=== PATIENT | male | born 1965 | race Hispanic/Latino ===

== ENCOUNTER 2020-03-07 08:34 | Inpatient (IN) | payer OTHER ==
[2020-03-07] MEDS ORDERED: IPRATROPIUM 0.02% NEBU 2.5 ML IH ONE (08:55)
[2020-03-07] MEDS ORDERED: ALBUTEROL 2.5 MG/3 ML NEBU IH ONE (08:55)
--- NOTE | 2020-03-07 09:01 | Emergency Department Report ---
HPI - General Chief Complaint: Upper Respiratory Infection Time Seen by Provider: 03/07/20 08:40 - HPI HPI: Room 40 The patient is a 54-year-old male present with a chief complaint of fever shortness of breath and chest congestion. Patient states he was diagnosed with Covid 6 days ago and since then he has had a fever ranging from 101-101.5 F, shortness of breath that worsens with exertion and chest congestion. Patient is to cough that is nonproductive. Patient drove himself to the emergency department ED Past Medical Hx - Past Medical History Previous Medical History?: No - Surgical History Additional Surgical History: Sigmoidectomy - Family History Family history: no significant - Social History Smoking Status: Never Smoker Substance Use Type: None (Denies illicit drug use) ED Review of Systems ROS: Stated complaint: COVID POSITIVE Other details as noted in HPI Constitutional: fever Eyes: denies: eye pain ENT: denies: throat pain Respiratory: cough, shortness of breath, SOB with exertion, other (Chest congestion) Endocrine: no symptoms reported Gastrointestinal: denies: abdominal pain Genitourinary: denies: dysuria Musculoskeletal: denies: back pain Neurological: denies: headache Physical Exam - Physical Exam Physical Exam: GENERAL: The patient is well-developed well-nourished male lying on stretcher not appearing to be in acute distress. [] HEENT: Normocephalic. Atraumatic. Extraocular motions are intact. Patient has moist mucous membranes. NECK: Supple. Trachea midline CHEST/LUNGS: Rhonchi with occasional wheeze. Occasional cough. HEART/CARDIOVASCULAR: Regular. There is no tachycardia. There is no gallop rub or murmur. ABDOMEN: Abdomen is soft, nontender. Patient has normal bowel sounds. There is no abdominal distention. SKIN: There is no rash. There is no diaphoresis. NEURO: The patient is awake, alert, and oriented. The patient is cooperative. The patient has normal speech MUSCULOSKELETAL: There is no evidence of acute injury. ED Course - Reevaluation(s) Reevaluation #1: 03/07/20 11:40 Patient desatted to 88% on room air upon ambulation for 2 minutes. Will admit to the hospital ED Medical Decision Making - Lab Data Result diagrams: 03/07/20 08:59 03/07/20 08:59 Laboratory Tests 03/07/20 03/07/20 08:59 08:59 WBC 5.4 RBC 4.90 Hgb 15.7 H Hct 45.0 MCV 92 MCH 32 MCHC 35 H RDW 13.2 Plt Count 219 Lymph % (Auto) 22.7 [place] % (Auto) 12.5 H Eos % (Auto) 3.1 Baso % (Auto) 1.9 H Lymph # (Auto) 1.2 [place] # (Auto) 0.7 Eos # (Auto) 0.2 Baso # (Auto) 0.1 Seg Neutrophils % 59.8 Seg Neutrophils # 3.2 Sodium 142 Potassium 4.4 Chloride 103.8 Carbon Dioxide 34 H Anion Gap 9 BUN 9 Creatinine 0.7 L Estimated GFR > 60 BUN/Creatinine Ratio 13 Glucose 106 H Calcium 9.6 Total Bilirubin 0.30 AST 22 ALT 35 Alkaline Phosphatase 68 NT-Pro-B Natriuret Pep 24.44 Total Protein 7.2 Albumin 4.5 Albumin/Globulin Ratio 1.7 - Radiology Data Radiology results: report reviewed (Chest x-ray), image reviewed (Chest x-ray) interpreted by me: Chest x-ray-no focal infiltrates, no pneumothorax, no foreign body seen Findings [facility] [address] [place] [address] XRay Report Signed Patient: ANA GOLDSMITH MR#: [id number] : 1965 Acct:[id number] Age/Sex: 54 / M ADM Date: 03/07/20 Loc: ED Attending Dr: Ordering Physician: LEATHA HARRISON MD Date of Service: 03/07/20 Procedure(s): XR chest 1V ap Accession Number(s): [id number] cc: LEATHA HARRISON MD Fluoro Time In Minutes: CHEST 1 VIEW 03/07/2020 9:39 AM INDICATION / CLINICAL INFORMATION: Cough, shortness of breath. Covid positive. COMPARISON: None available. FINDINGS: SUPPORT DEVICES: None. HEART / MEDIASTINUM: No significant abnormality. LUNGS / PLEURA: There is minimal parenchymal opacity in the right lung base. No pneumothorax. ADDITIONAL FINDINGS: No significant additional findings. IMPRESSION: 1. There is minimal parenchymal opacity in the right lung base. Signer Name: Pete London MD Signed: 03/07/2020 10:41 AM Workstation Name: [id number] Transcribed By: SS Dictated By: Pete London MD Electronically Authenticated By: Pete London MD Signed Date/Time: 03/07/20 1041 DD/ 1040 TD/TT: - Differential Diagnosis COVID-19 pneumonia Critical care attestation.: If time is entered above; I have spent that time in minutes in the direct care of this critically ill patient, excluding procedure time. ED Disposition Clinical Impression: COVID-19, Pneumonia, Hypoxia Disposition: DC-09 OP ADMIT IP TO THIS HOSP Is pt being admited?: Yes Does the pt Need Aspirin: No Condition: Fair Instructions: Bacterial Pneumonia (ED) Referrals: PRIMARY CARE, [Primary Care Provider] - 3-5 Days Time of Disposition: 11:41 (Hospitalist paged)
[2020-03-07 09:22] LABS: Basophils # (Auto) 0.1 K/mm3 (0.0-0.1); Basophils % (Auto) 1.9 % (0.0-1.8); Eosinophils # (Auto) 0.2 K/mm3 (0.0-0.4); Eosinophils % (Auto) 3.1 % (0.0-4.3); Hemoglobin 15.7 gm/dl (11.8-15.2); Lymphocytes # (Auto) 1.2 K/mm3 (1.2-5.4); Lymphocytes % (Auto) 22.7 % (13.4-35.0); Mean Corpuscular HGB Conc 35 % (32-34); Mean Corpuscular Volume 92 fl (84-94); Monocytes # (Auto) 0.7 K/mm3 (0.0-0.8); Monocytes % (Auto) 12.5 % (0.0-7.3); Platelet Count 219 K/mm3 (140-440); Red Cell Distribution Width 13.2 % (13.2-15.2)
[2020-03-07 09:40] LABS: Alanine Aminotransferase 35 units/L (7-56); Albumin 4.5 g/dL (3.9-5); Blood Urea Nitrogen 9 mg/dL (9-20); Calcium 9.6 mg/dL (8.4-10.2); Hemolysis Index 7
[2020-03-07 09:47] LABS: BUN/Creatinine Ratio 13
--- NOTE | 2020-03-07 10:45 | XRay Report ---
CHEST 1 VIEW 03/07/2020 9:39 AM INDICATION / CLINICAL INFORMATION: Cough, shortness of breath. Covid positive. COMPARISON: None available. FINDINGS: SUPPORT DEVICES: None. HEART / MEDIASTINUM: No significant abnormality. LUNGS / PLEURA: There is minimal parenchymal opacity in the right lung base. No pneumothorax. ADDITIONAL FINDINGS: No significant additional findings. IMPRESSION: 1. There is minimal parenchymal opacity in the right lung base. Signer Name: Pete London MD Signed: 03/07/2020 10:41 AM Workstation Name: [id number]
--- NOTE | 2020-03-07 11:44 | History and Physical Report ---
History of Present Illness Chief complaint: I cannot breathe, and i Feel terrible History of present illness: 54 YO Male with No PMH presents to ED for evaluation. Patient states that "I have been feeling terrible" over the past 6 days with persistently worsening symptoms over the same timeframe. Patient was found to have a positive coronavirus test 6 days ago. Patient states that he has experienced fever, shortness of breath, malaise, decreased exercise tolerance, muscle aches, shortness of breath, dry cough, dyspnea on exertion, as well as dyspnea at rest. Patient transported to [facility] via private vehicle for further care and evaluation of the aforementioned symptoms. The patient was seen and evaluated in the emergency department. All lab and imaging studies reviewed. Patient was found to have fever to 102.0 F. Patient found to have a pulse oximetry of 86% with exertion which is consistent with acute hypoxemic respiratory failure. Chest x- ray revealed evidence of pneumonia. Patient admitted to medical floor and initiated on pneumonia protocol, as well as coronavirus protocol. Patient knowledges fever, chills but denies chest pain, palpitation, skin rash, recent ill contacts. No prior admission for review. No medication listed at time of admission for reconciliation. Past History Past Medical History: No medical history Past Surgical History: bowel surgery Social history: . denies: smoking, alcohol abuse, prescription drug abuse Family history: no significant family history, other (Reviewed) Medications and Allergies Allergies Allergy/AdvReac Type Severity Reaction Status Date / Time No Known Allergies Allergy Unverified 03/07/20 08:55 Review of Systems Constitutional: fever, fatigue, weakness, malaise Ears, nose, mouth and throat: no ear pain, no ear discharge, no tinnitis, no decreased hearing, no nose pain Cardiovascular: no chest pain, no orthopnea, no palpitations Respiratory: cough, cough with sputum, shortness of breath, dyspnea on exertion, no congestion Gastrointestinal: no nausea, no vomiting, no diarrhea, no constipation Genitourinary Male: no hematuria, no flank pain, no discharge, no urinary frequency, no urinary hesitancy Rectal: no pain, no incontinence, no bleeding Musculoskeletal: no neck stiffness, no neck pain, no shooting arm pain, no arm numbness/tingling, no low back pain Integumentary: no rash, no pruritis, no redness, no sores, no wounds, no jaundice Neurological: no transient paralysis, no paralysis, no weakness, no parathesias, no numbness, no tingling, no seizures Psychiatric: no anxiety, no change in sleep habits, no sleep disturbances, no hypersomnia, no change in appetite Endocrine: no cold intolerance Hematologic/Lymphatic: no easy bruising, no easy bleeding Allergic/Immunologic: no urticaria, no allergic rhinitis Exam - Constitutional Vitals: Temp Pulse Resp BP Pulse Ox 98 F 88 18 157/82 98 03/07/20 08:54 03/07/20 09:05 03/07/20 09:05 03/07/20 08:54 03/07/20 08:54 General appearance: Present: mild distress - EENT Eyes: Present: PERRL ENT: hearing intact, clear oral mucosa - Neck Neck: Present: supple, normal ROM - Respiratory Respiratory effort: labored, accessory muscle use, stridor Respiratory: bilateral: diminished, rhonchi - Cardiovascular Heart Sounds: Present: S1 & S2. Absent: rub, click - Extremities Extremities: pulses symmetrical, No edema Peripheral Pulses: within normal limits - Abdominal General gastrointestinal: Present: soft, non-tender, non-distended, normal bowel sounds Male genitourinary: Present: normal - Integumentary Integumentary: Present: clear, warm, dry - Musculoskeletal Musculoskeletal: gait normal, strength equal bilaterally - Psychiatric Psychiatric: appropriate mood/affect, intact judgment & insight - Neurologic Neurologic: CNII-XII intact, moves all extremities Results - Labs CBC & Chem 7: 03/07/20 08:59 03/07/20 08:59 Labs: Abnormal lab results 03/07/20 03/07/20 Range/Units 08:59 08:59 Hgb 15.7 H (11.8-15.2) gm/dl MCHC 35 H (32-34) % [place] % (Auto) 12.5 H (0.0-7.3) % Baso % (Auto) 1.9 H (0.0-1.8) % Carbon Dioxide 34 H (22-30) mmol/L Creatinine 0.7 L (0.8-1.3) mg/dL Glucose 106 H (75-100) mg/dL Assessment and Plan - Patient Problems (1) Acute hypoxemic respiratory failure Current Visit: Yes Status: Acute Plan to address problem: Supplemental oxygen, pulse oximetry, nebulizer therapy, prone positioning while in bed, pulmonary toilet, chest x-ray. (2) COVID-19 Current Visit: Yes Status: Acute Plan to address problem: Coronavirus protocol: Contact precautions, isolation precautions, IV antibiotic therapy, IV steroid therapy, prone positioning while in bed, supplemental oxygen, pulmonary toilet, supportive care. (3) Pneumonia Current Visit: Yes Status: Acute Plan to address problem: Pneumonia protocol: Chest x-ray, CBC, CMP, IV antibiotic therapy, nebulizer therapy, pulse oximetry, blood culture. (4) DVT prophylaxis Current Visit: Yes Status: Acute Plan to address problem: SCD to bilateral lower extremities while in bed, prophylactic anticoagulation
[2020-03-07] MEDS ORDERED: ALBUTEROL 2.5 MG/3 ML NEBU IH PRN (12:00)
[2020-03-07] MEDS ORDERED: cefTRIAXone/NS 2 GM/100 ML 2 GM/100 ML BAG IV SCH (12:00)
[2020-03-07] MEDS ORDERED: ACETAMINOPHEN 325 MG TAB PO PRN (12:00)
[2020-03-07] MEDS ORDERED: ONDANSETRON 4 MG/2 ML INJ IV PRN (12:00)
[2020-03-07] MEDS ORDERED: AZITHROMYCIN 500 MG in SODIUM CHLORIDE 0.9% 250ML 250 ML IV SCH (12:30)
[2020-03-07 12:55] LABS: C-Reactive Protein 0.3 mg/dL (0.00-1.30)
[2020-03-07] MEDS ORDERED: HYDROcodone/HOMATROPINE 5-1.5MG /5 ML ORAL LIQD UNIT DOSE PO PRN (13:00)
[2020-03-07] MEDS: HEPARIN 5,000 UNIT/1 ML VIAL SUB-Q SCH ×2 (14:05→21:24)
[2020-03-07] MEDS: methylPREDNISolone Sod Succinate 40 MG/1 ML INJ IV SCH ×2 (14:05→21:25)
[2020-03-07] MEDS: FAMOTIDINE 10 MG TAB PO SCH ×2 (14:07→21:24)
--- NOTE | 2020-03-07 15:39 | Consultation ---
History of Present Illness - Reason for Consult Consult date: 03/07/20 - History of Present Illness 54-year-old male no past medical history presented to the hospital complaining of generalized malaise. He notes this began approximately 6 days prior to admission with associated with progressive worsening since that time. He was noted to have a positive Covid test 6 days prior as well. He complains of fevers, shortness of breath, general Covid symptoms. He notes fevers at home. Afebrile since admission with a normal white count. Normal procalcitonin, normal renal function. Covid testing pending. Currently on ceftriaxone azithromycin. Blood cultures currently pending. Imaging personally reviewed: Chest x-ray: Minimal opacity in the right lung base. Review of systems: Deferred due to PPE conservation strategy. Past History Past Medical History: No medical history Past Surgical History: bowel surgery Social history: . denies: smoking, alcohol abuse, prescription drug abuse Family history: no significant family history, other (Reviewed) Medications and Allergies Allergies Allergy/AdvReac Type Severity Reaction Status Date / Time No Known Allergies Allergy Unverified 03/07/20 08:55 Active Meds: Active Medications Acetaminophen (Acetaminophen 325 Mg Tab) 650 mg PO Q4H PRN PRN Reason: Pain MILD(1-3)/Fever >100.5/MARRERO Albuterol (Albuterol 2.5 Mg/3 Ml Nebu) 2.5 mg IH Q4HRT PRN PRN Reason: Shortness Of Breath Famotidine (Famotidine 10 Mg Tab) 10 mg PO BID [facility] Last Admin: 03/07/20 14:07 Dose: 10 mg Documented by: Heparin Sodium (Porcine) (Heparin 5,000 Unit/1 Ml Vial) 5,000 unit SUB-Q Q12HR BETTIE Last Admin: 03/07/20 14:05 Dose: 5,000 unit Documented by: Hydrocodone Bit/Homatropine Methylb (Hydrocodone/Homatropine 5-1.5mg /5 Ml Oral Liqd Unit Dose) 10 ml PO Q6H PRN PRN Reason: Cough Ceftriaxone Sodium (Rocephin/Ns 2 Gm/100 Ml) 2 gm in 100 mls @ 200 mls/hr IV Q24H BETTIE; Protocol Azithromycin 500 mg/ Sodium (Chloride) 250 mls @ 250 mls/hr IV Q24H BETTIE; Protocol Methylprednisolone Sodium Succinate (Methylprednisolone Sod Succinate 40 Mg/1 Ml Inj) 40 mg IV Q8HR BETTIE Last Admin: 03/07/20 14:05 Dose: 40 mg Documented by: Ondansetron HCl (Ondansetron 4 Mg/2 Ml Inj) 4 mg IV Q8H PRN PRN Reason: Nausea And Vomiting Sodium Chloride (Sodium Chloride 0.9% 10 Ml Flush Syringe) 10 ml IV BID BETTIE Last Admin: 03/07/20 14:07 Dose: 10 ml Documented by: Sodium Chloride (Sodium Chloride 0.9% 10 Ml Flush Syringe) 10 ml IV PRN PRN PRN Reason: LINE FLUSH Physical Examination - Physical Exam Narrative exam: Physical exam deferred due to PPE conservation strategy. Please refer to primary team's note. - Constitutional Vitals: Vital Signs Temp Pulse Resp BP Pulse Ox 98 F 88 18 157/82 98 03/07/20 08:54 03/07/20 09:05 03/07/20 09:05 03/07/20 08:54 03/07/20 08:54 Temperature -Last 24 Hours Temperature 98 F Results - Labs CBC & Chem 7: 03/07/20 08:59 03/07/20 12:10 Labs: Abnormal lab results 03/07/20 03/07/20 03/07/20 Range/Units 08:59 08:59 12:10 Hgb 15.7 H (11.8-15.2) gm/dl MCHC 35 H (32-34) % [place] % (Auto) 12.5 H (0.0-7.3) % Baso % (Auto) 1.9 H (0.0-1.8) % Carbon Dioxide 34 H (22-30) mmol/L Creatinine 0.7 L (0.8-1.3) mg/dL Glucose 106 H (75-100) mg/dL Ferritin 1277.0 H (30.0-300.0) ng/mL Assessment and Plan Cultures: Blood culture pending COVID-19 positive as outpatient A/P: 54-year-old man no past medical history admitted with COVID-19 pneumonia #COVID-19 pneumonia: Patient presented with a week of symptoms, chest x-ray with right-sided pneumonia #Acute hypoxemic respiratory failure: Likely secondary to COVID-19 infection #Obesity: Associated with worse COVID-19 outcomes Recs: -Dexamethasone 6 mg IV/PO daily for 10 days -If patient develops hypoxia requiring greater than or equal to 2 L nasal cannu la with start remdesivir -Stopped antibiotics due to normal procalcitonin -Anticoagulation as per hospital protocol -Proning as able -Obtain daily inflammatory markers - ferritin, Ddimer, CRP, LDH Thank you for the consult, we will continue to follow. Marissa William MD [facility] ([facility] O: [phone] F: [phone]
[2020-03-08] MEDS: methylPREDNISolone Sod Succinate 40 MG/1 ML INJ IV SCH ×3 (05:48→21:58)
[2020-03-08 06:45] LABS: Basophils % (Auto) 0.1 % (0.0-1.8); Hematocrit 47.7 % (35.5-45.6); Hemoglobin 16.2 gm/dl (11.8-15.2); Lymphocytes % (Auto) 8.2 % (13.4-35.0); Mean Corpuscular HGB Conc 34 % (32-34); Mean Corpuscular Volume 92 fl (84-94); Monocytes # (Auto) 0.2 K/mm3 (0.0-0.8); Monocytes % (Auto) 1.7 % (0.0-7.3); Platelet Count 256 K/mm3 (140-440); Red Cell Distribution Width 13.1 % (13.2-15.2)
[2020-03-08 07:49] LABS: Blood Urea Nitrogen 12 mg/dL (9-20); Hemolysis Index 9
[2020-03-08 08:27] LABS: BUN/Creatinine Ratio 17
[2020-03-08] MEDS: ZINC SULFATE 220 MG CAP PO SCH (09:58)
[2020-03-08] MEDS: FAMOTIDINE 10 MG TAB PO SCH ×2 (09:59→21:58)
[2020-03-08] MEDS: ASCORBIC ACID 500 MG TAB PO SCH (09:59)
[2020-03-08] MEDS: HEPARIN 5,000 UNIT/1 ML VIAL SUB-Q SCH ×2 (10:00→22:02)
--- NOTE | 2020-03-08 11:06 | Progress Note ---
Assessment and Plan Assessment and plan: --COVID-19 pneumonia Continue dexamethasone Not hypoxic so not a candidate for remdesivir as per ID Prone positioning Trend inflammatory markers Needs a walk test prior to discharge. --DVT prophylaxis Current Visit: Yes Status: Acute Plan to address problem: SCD to bilateral lower extremities while in bed, prophylactic anticoagulation History Interval history: He feels good today. Not needing oxygen. On steroids Hospitalist Physical - Physical exam Narrative exam: VITAL SIGNS: Reviewed. GENERAL: Awake HEAD: No signs of head trauma. EYES: Pupils are equal. Extraocular motions intact. MOUTH: Oropharynx is normal. NECK: No adenopathy, no JVD. CHEST: Chest with diminished breath sounds bilaterally. No wheezes, rales, or rhonchi. CARDIAC: normal S1 and S2, without murmurs, gallops, or rubs. ABDOMEN: Soft, non tender and non distended. No rebound or guarding, and no masses palpated. Bowel Sounds normal. MUSCULOSKELETAL: No edema NEUROLOGIC EXAM: Alert and oriented x3. No focal neurologic deficits SKIN: No obvious lesions - Constitutional Vitals: Temp Pulse Resp BP Pulse Ox 98.4 F 104 H 18 127/78 91 03/08/20 05:30 03/08/20 05:26 03/08/20 05:30 03/08/20 05:26 03/08/20 08:22 Results - Labs CBC & Chem 7: 03/08/20 04:22 03/08/20 04:22 Labs: Laboratory Last Values WBC 12.0 K/mm3 (4.5-11.0) H 03/08/20 04:22 RBC 5.20 M/mm3 (3.65-5.03) H 03/08/20 04:22 Hgb 16.2 gm/dl (11.8-15.2) H 03/08/20 04:22 Hct 47.7 % (35.5-45.6) H 03/08/20 04:22 MCV 92 fl (84-94) 03/08/20 04:22 MCH 31 pg (28-32) 03/08/20 04:22 MCHC 34 % (32-34) 03/08/20 04:22 RDW 13.1 % (13.2-15.2) L 03/08/20 04:22 Plt Count 256 K/mm3 (140-440) 03/08/20 04:22 Lymph % (Auto) 8.2 % (13.4-35.0) L 03/08/20 04:22 [place] % (Auto) 1.7 % (0.0-7.3) 03/08/20 04:22 Eos % (Auto) 0.0 % (0.0-4.3) 03/08/20 04:22 Baso % (Auto) 0.1 % (0.0-1.8) 03/08/20 04:22 Lymph # (Auto) 1.0 K/mm3 (1.2-5.4) L 03/08/20 04:22 [place] # (Auto) 0.2 K/mm3 (0.0-0.8) 03/08/20 04:22 Eos # (Auto) 0.0 K/mm3 (0.0-0.4) 03/08/20 04:22 Baso # (Auto) 0.0 K/mm3 (0.0-0.1) 03/08/20 04:22 Seg Neutrophils % 90.0 % (40.0-70.0) H 03/08/20 04:22 Seg Neutrophils # 10.8 K/mm3 (1.8-7.7) H 03/08/20 04:22 D-Dimer 171.10 ng/mlDDU (0-234) 03/07/20 12:10 Sodium 142 mmol/L (137-145) 03/08/20 04:22 Potassium 4.0 mmol/L (3.6-5.0) 03/08/20 04:22 Chloride 103.3 mmol/L (98-107) 03/08/20 04:22 Carbon Dioxide 27 mmol/L (22-30) D 03/08/20 04:22 Anion Gap 16 mmol/L 03/08/20 04:22 BUN 12 mg/dL (9-20) 03/08/20 04:22 Creatinine 0.7 mg/dL (0.8-1.3) L 03/08/20 04:22 Estimated GFR > 60 ml/min 03/08/20 04:22 BUN/Creatinine Ratio 17 % 03/08/20 04:22 Glucose 124 mg/dL (75-100) H 03/08/20 04:22 Calcium 10.0 mg/dL (8.4-10.2) 03/08/20 04:22 Ferritin 1277.0 ng/mL (30.0-300.0) H 03/07/20 12:10 Total Bilirubin 0.30 mg/dL (0.1-1.2) 03/07/20 08:59 AST 22 units/L (5-40) 03/07/20 08:59 ALT 35 units/L (7-56) 03/07/20 08:59 Alkaline Phosphatase 68 units/L (35-129) 03/07/20 08:59 Lactate Dehydrogenase 180 units/L (91-180) 03/07/20 12:10 C-Reactive Protein 0.30 mg/dL (0.00-1.30) 03/07/20 12:10 NT-Pro-B Natriuret Pep 24.44 pg/mL (0-900) 03/07/20 08:59 Total Protein 7.2 g/dL (6.3-8.2) 03/07/20 08:59 Albumin 4.5 g/dL (3.9-5) 03/07/20 08:59 Albumin/Globulin Ratio 1.7 % 03/07/20 08:59 Procalcitonin < 0.05 ng/mL (<0.15) 03/07/20 12:10 Microbiology: Microbiology 03/07/20 08:59 Peripheral/Venous Blood Culture - Preliminary NO GROWTH AFTER 24 HOURS 03/07/20 08:59 Peripheral/Venous Blood Culture - Preliminary NO GROWTH AFTER 24 HOURS Morgan/IV: Voiding Method Toilet IV Catheter Type [Left INT / Saline Lock Antecubital] Active Medications - Current Medications Current Medications: Generic Name Dose Route Start Last Admin Trade Name Freq PRN Reason Stop Dose Admin Acetaminophen 650 mg 03/07/20 12:00 Acetaminophen 325 Mg Tab PO Q4H PRN Pain MILD(1-3)/Fever >100.5/MARRERO Albuterol 2.5 mg 03/07/20 12:00 Albuterol 2.5 Mg/3 Ml Nebu IH Q4HRT PRN Shortness Of Breath Ascorbic Acid 500 mg 03/08/20 10:00 03/08/20 09:59 Ascorbic Acid 500 Mg Tab PO 500 mg QDAY BETTIE Administration Famotidine 10 mg 03/07/20 13:00 03/08/20 09:59 Famotidine 10 Mg Tab PO 10 mg BID BETTIE Administration Heparin Sodium (Porcine) 5,000 unit 03/07/20 13:00 03/08/20 10:00 Heparin 5,000 Unit/1 Ml Vial SUB-Q 5,000 unit Q12HR BETTIE Administration Hydrocodone Bit/Homatropine Methylb 10 ml 03/07/20 13:00 Hydrocodone/Homatropine 5-1.5mg /5 Ml Oral Liqd Unit Dose PO Q6H PRN Cough Methylprednisolone Sodium Succinate 40 mg 03/07/20 14:00 03/08/20 05:48 Methylprednisolone Sod Succinate 40 Mg/1 Ml Inj IV 40 mg Q8HR BETTIE Administration Ondansetron HCl 4 mg 03/07/20 12:00 Ondansetron 4 Mg/2 Ml Inj IV Q8H PRN Nausea And Vomiting Pneumococcal Polyvalent Vaccine 0.5 ml 03/08/20 12:00 Pneumococcal 23 Valent 0.5 Ml Vial IM 03/08/20 12:01 .ONCE ONE Sodium Chloride 10 ml 03/07/20 13:00 03/08/20 10:00 Sodium Chloride 0.9% 10 Ml Flush Syringe IV 10 ml BID BETTIE Administration Sodium Chloride 10 ml 03/07/20 12:00 Sodium Chloride 0.9% 10 Ml Flush Syringe IV PRN PRN LINE FLUSH Zinc Sulfate 220 mg 03/08/20 10:00 03/08/20 09:58 Zinc Sulfate 220 Mg Cap PO 220 mg QDAY BETTIE Administration
[2020-03-08] MEDS ORDERED: PNEUMOCOCCAL 23 Valent 0.5 ML VIAL IM ONE (12:00)
--- NOTE | 2020-03-08 16:48 | Progress Note ---
Assessment and Plan Cultures: Blood culture pending COVID-19 positive as outpatient A/P: 54-year-old man no past medical history admitted with COVID-19 pneumonia #COVID-19 pneumonia: Patient presented with a week of symptoms, chest x-ray with right-sided pneumonia #Acute hypoxemic respiratory failure: Likely secondary to COVID-19 infection #Obesity: Associated with worse COVID-19 outcomes Recs: -Dexamethasone 6 mg IV/PO daily for 10 days -If patient develops hypoxia requiring greater than or equal to 2 L nasal cannula with start remdesivir -Anticoagulation as per hospital protocol -Proning as able -Obtain every other daily inflammatory markers - ferritin, Ddimer, CRP, LDH Thank you for the consult, we will continue to follow. Marissa William MD [facility] O: [phone] F: [phone] Subjective Date of service: 03/08/20 Interval history: Afebrile, tachycardic white count slightly elevated at 12. Blood cultures remain negative. Currently on room air. Objective - Exam Narrative Exam: Physical exam deferred due to PPE conservation strategy. Please refer to [facility] team's note. - Constitutional Vitals: Vital Signs Temp Pulse Resp BP Pulse Ox 98.1 F 104 H 18 151/92 97 03/08/20 11:14 03/08/20 11:14 03/08/20 11:14 03/08/20 11:14 03/08/20 16:00 Temperature -Last 24 Hours Temperature 98.1 F Temperature 98.4 F Temperature 98.4 F Temperature 98.8 F - Labs CBC & Chem 7: 03/08/20 04:22 03/08/20 04:22 Labs: Abnormal lab results 03/08/20 03/08/20 Range/Units 04:22 04:22 WBC 12.0 H (4.5-11.0) K/mm3 RBC 5.20 H (3.65-5.03) M/mm3 Hgb 16.2 H (11.8-15.2) gm/dl Hct 47.7 H (35.5-45.6) % RDW 13.1 L (13.2-15.2) % Lymph % (Auto) 8.2 L (13.4-35.0) % Lymph # (Auto) 1.0 L (1.2-5.4) K/mm3 Seg Neutrophils % 90.0 H (40.0-70.0) % Seg Neutrophils # 10.8 H (1.8-7.7) K/mm3 Creatinine 0.7 L (0.8-1.3) mg/dL Glucose 124 H (75-100) mg/dL
[2020-03-09] MEDS: methylPREDNISolone Sod Succinate 40 MG/1 ML INJ IV SCH (06:07)
[2020-03-09 06:48] VITALS: BP 117/59
[2020-03-09] MEDS: FAMOTIDINE 10 MG TAB PO SCH (09:54)
[2020-03-09] MEDS: ZINC SULFATE 220 MG CAP PO SCH (09:54)
[2020-03-09] MEDS: ASCORBIC ACID 500 MG TAB PO SCH (09:54)
[2020-03-09] MEDS: HEPARIN 5,000 UNIT/1 ML VIAL SUB-Q SCH (09:54)
--- NOTE | 2020-03-09 10:39 | Discharge Summary ---
Providers - Providers Date of Admission: 03/07/20 11:44 Date of discharge: 03/09/20 Attending physician: MICHELLE YUEN 03/07/20 11:44 Consult to Physician [CONS] Routine Comment: Consulting Provider: AL SNEED Physician Instructions: Reason For Exam: pui Primary care physician: [employer] [facility] Hospitalization Condition: Fair Hospital course: 54 YO Male with No PMH presents to ED for evaluation. Patient states that "I have been feeling terrible" over the past 6 days with persistently worsening symptoms over the same timeframe. Patient was found to have a positive coronavirus test 6 days ago. Patient states that he has experienced fever, shortness of breath, malaise, decreased exercise tolerance, muscle aches, shortness of breath, dry cough, dyspnea on exertion, as well as dyspnea at rest. Patient transported to [facility] via private vehicle for further care and evaluation of the aforementioned symptoms. The patient was seen and evaluated in the emergency department. All lab and imaging studies reviewed. Patient was found to have fever to 102.0 F. Patient found to have a pulse oximetry of 86% with exertion which is consistent with acute hypoxemic respiratory failure. Chest x- ray revealed evidence of pneumonia. Patient admitted to medical floor and initiated on pneumonia protocol, as well as coronavirus protocol. Patient knowledges fever, chills but denies chest pain, palpitation, skin rash, recent ill contacts. No prior admission for review. No medication listed at time of admission for reconciliation. Hospital course he was started on dexamethasone and antibiotics for COVID-19 pneuonia. ID was consulted. He remained stable in RA with oxygen saturation above 95 % after initiation of steroids. He had exercise oximetry and his sats are in the 98% range. He did not require supplemental oxygen. He will be discharged home on dexamethasone to complete 10 day treatment. He agrees with plan for discharge and will observe 14 days quarantine before returning to work. A negative test maybe necessary prior to return to work. Disposition: - TO HOME OR SELFCARE Time spent for discharge: 35 minutes - Discharge Diagnoses (1) Acute hypoxemic respiratory failure Status: Acute (2) COVID-19 Status: Acute (3) Pneumonia Status: Acute Core Measure Documentation - Palliative Care Palliative Care/ Comfort Measures: Not Applicable - Core Measures Any of the following diagnoses?: none Exam - Physical Exam Narrative exam: VITAL SIGNS: Reviewed. GENERAL: Awake HEAD: No signs of head trauma. EYES: Pupils are equal. Extraocular motions intact. MOUTH: Oropharynx is normal. NECK: No adenopathy, no JVD. CHEST: Chest with diminished breath sounds bilaterally. No wheezes, rales, or rhonchi. CARDIAC: normal S1 and S2, without murmurs, gallops, or rubs. ABDOMEN: Soft, non tender and non distended. No rebound or guarding, and no masses palpated. Bowel Sounds normal. MUSCULOSKELETAL: No edema NEUROLOGIC EXAM: Alert and oriented x3. No focal neurologic deficits SKIN: No obvious lesions - Constitutional Vitals: Temp Pulse Resp BP Pulse Ox 98.0 F 95 H 18 117/59 97 03/09/20 04:27 03/09/20 04:27 03/09/20 04:27 03/09/20 04:27 03/09/20 08:44 Plan Activity: no restrictions Diet: regular Additional Instructions: Continue dexamethasone for 7 more days. Continue vitamin c and zinc. Self quarantine for 14 days prior to returning to work. Follow up with your pcp after quarantine period for a repeat covid test Follow up with: PRIMARY CARE, [Primary Care Provider] - 3-5 Days Forms: Work/School Release Form Prescriptions: dexAMETHasone [Dexamethasone] 6 mg PO DAILY #7 tablet Ascorbic Acid [Vitamin C] 500 mg PO QDAY #14 tablet Zinc Sulfate 220 mg PO QDAY #14 capsule
[2020-03-09] MEDS ORDERED: DEXAMETHASONE 4 MG TAB PO SCH (12:00)
== END 2020-03-09 12:13 | disposition home or self-care (01) | DRG 177 ==
LOC: ED 08:34 → EEVIPCON 08:34 → 3A 11:44
PROVIDERS: ADMIT Internal Medicine; ATTEND Internal Medicine
DX: U07.1 COVID-19 (principal); J96.01 Acute respiratory failure with hypoxia; J12.82 Pneumonia due to coronavirus disease 2019; E66.9 Obesity, unspecified; Z68.35 Body mass index [BMI] 35.0-35.9, adult
CPT/HCPCS: 36415; 71045; 80048; 80053; 82728; 82947; 83615; 83880; 84145; 85025; 85379; 86140; 87040; 90732; 94644; G0378; J0456; J1644; J2920; J7050

== ENCOUNTER 2020-04-22 08:15 | Outpatient (CLI) | payer OTHER | END 2020-04-22 08:16 | disposition home or self-care (01) | LOC: CATH 08:15 | PROVIDERS: ATTEND Internal Medicine | DX: I05.8 Other rheumatic mitral valve diseases (principal) | CPT/HCPCS: 93306 ==